=== PATIENT | male | born 1960 | race Caucasian/White ===

== ENCOUNTER 2018-01-27 11:03 | Emergency (ER) | payer OTHER ==
[~2018-01-27] VITALS: Ht 152.4 cm; Wt 68.9 kg
--- NOTE | 2018-01-27 12:36 | Diagnostic Imaging Report ---
History: Headache, neck pain Comparison studies: None Technique: Axial images were obtained from the skull base to the vertex. Coronal and sagittal reconstructions obtained from the axial data. Dose modulation, iterative reconstruction, and/or weight based adjustment of the mA/kV was utilized to reduce the radiation dose to as low as reasonably achievable. Findings: Scalp/skull: No abnormalities. No fractures, blastic or lytic lesions. Extra-axial spaces: No masses. No fluid collections. Brain sulci: Appropriate for age. Ventricles: Normal in size and configuration. No hydrocephalus. Parenchyma: No abnormal densities. No masses, hemorrhage, acute or chronic cortical vascular insults. Sellar/suprasellar region: No abnormalities Craniocervical junction: Patent foramen magnum. No Chiari one malformation. Incidental findings: Punctate atherosclerotic calcifications in the carotid siphons. Diffuse inflammatory changes in the partially visualized left frontal and bilateral ethmoid sinuses. IMPRESSION: 1. No intracranial abnormalities 2. Incidental diffuse inflammatory changes in the partially visualized left frontal and bilateral ethmoid sinuses. Signed by: Dr. Jason Washington M.D. on 01/27/2018 12:33 PM
--- NOTE | 2018-01-27 12:42 | Diagnostic Imaging Report ---
History: Neck pain Comparison studies: None Technique: Axial images were obtained through the cervical region. Coronal and sagittal images reconstructed from the axial data. Dose modulation, iterative reconstruction, and/or weight based adjustment of the mA/kV was utilized to reduce the radiation dose to as low as reasonably achievable. Intravenous contrast: None Findings: Airway: Patent. Atlantoaxial articulation: Minimally degenerated Alignment: Straightening of the usual lordosis probably positional. Slight curvature towards the left at C5. No scoliosis. Cervicomedullary junction: No abnormalities. Patent foramen magnum. Soft tissues: No incidental punctate atherosclerotic calcifications at the left carotid bulb Vertebrae: No fractures, neoplasm or infection. Degenerative changes: C2-C3: Normal disc Patent spinal canal and foramina C3-4: Normal disc. Patent spinal canal and foramina. . C4-5: Mildly degenerated disc. Moderate left foraminal stenosis due to facet and uncoarthrosis Patent spinal canal and right foramen. C5-6: Mildly degenerated disc. Facet arthrosis, mild right, moderate left. Patent spinal canal and foramina. C6-7: Moderately degenerated disc. Mild bilateral foraminal stenosis due to uncoarthrosis. Patent spinal canal. . C7-T1: No abnormalities. IMPRESSION: 1. Mildly degenerated disks at C4-5 and C5-6, moderate at C6-7. 2. Facet arthrosis on the left at C4-5 and bilaterally at C5-6. 3. Degenerative foraminal stenosis on the left at C4-5, mild bilaterally at C6-7. 4. No significant spinal canal stenosis. 5. No disc herniations. Signed by: Dr. Jason Washington M.D. on 01/27/2018 12:38 PM
== END 2018-01-27 13:58 | disposition home or self-care (01) ==
LOC: ER 11:03
DX: M54.2 Cervicalgia (principal); R51 Headache; S16.1XXA Strain of muscle, fascia and tendon at neck level, initial encounter; I10 Essential (primary) hypertension
CPT/HCPCS: 70450; 72125; 99283